=== PATIENT | female | born 1980 | race Caucasian/White ===

== ENCOUNTER 2023-07-20 10:00 | Outpatient (RCR) | payer BC, SELFPAY ==
[2023-07-13] MEDS: IRON SUCROSE COMPLEX 100 MG in 0.9 % SODIUM CHLORIDE 100 ML IV (09:14)
[2023-07-13 09:17] VITALS: BP 106/65; PULSE 69; RESP 16; TEMP 36.6; O2SAT 98
--- NOTE | 2023-07-13 09:21 | PC.NURSE ---
0850 Arrived ambulatory to chair 1. Alert oriented. Reviewed venofer infusion with patient, IV #24 initiated on 1st attempt, tolerated well. Instructed on s/s of rxn, ie (itching shortness of breath hives, difficulty breathing - instructed to call if any occur.
--- NOTE | 2023-07-13 09:46 | PC.NURSE ---
0930 Tolerating infusion well, rate increased to 200 ml/hr
[2023-07-15] MEDS: IRON SUCROSE COMPLEX 200 MG in 0.9 % SODIUM CHLORIDE 100 ML IV (13:19)
[2023-07-15 13:20] VITALS: BP 108/62; PULSE 59; RESP 24; TEMP 36.6; O2SAT 97
--- NOTE | 2023-07-15 13:30 | PC.NURSE ---
1300 Arrived ambulatory to chair Alert oriented. IV initiated with some difficulty a total of 4 attempts to initiate per 2 RN's. 1320 IV infusion intiated, patient tolerating well
--- NOTE | 2023-07-15 14:36 | PC.NURSE ---
1400 infusion completed, tolerated well. flushed line with 20 ml NSS. Patient IV saline lock flushed secured with coban. Released ambulatory.
[2023-07-18 13:30] VITALS: BP 117/64; PULSE 74; RESP 18; TEMP 36.4; O2SAT 97
[2023-07-18] MEDS: IRON SUCROSE COMPLEX 200 MG in 0.9 % SODIUM CHLORIDE 100 ML IV (13:44)
[2023-07-20 09:57] VITALS: BP 124/62; PULSE 65; RESP 18; TEMP 36.2; O2SAT 97
--- NOTE | 2023-07-20 09:57 | PC.NURSE ---
0957: Pt. to [facility] amb for Venofer infusion. Seated in recliner. Pt. with existing IV in right forearm. Pt. c/o itching to site and leaking. IV d/c'd pressure to site. #22 gauge IV initiated to left ac on first attempt without difficulty. Flushes easily with good blood return. Pt. tolerated without c/o. IV Venofer initiated. Pt. denies needs or c/o.
[2023-07-20] MEDS: IRON SUCROSE COMPLEX 100 MG in 0.9 % SODIUM CHLORIDE 100 ML 200 MG IV (10:12)
== END 2023-07-21 23:59 | disposition home or self-care (01) ==
LOC: INF 10:00
PROVIDERS: PCP Internal Medicine; Visit Provider Obstetrics & Gynecology
DX: D50.9 Iron deficiency anemia, unspecified (principal)
CPT/HCPCS: 96360; 96365; J1756

== ENCOUNTER 2023-07-22 08:11 | Outpatient (RCR) | payer BC, SELFPAY ==
[2023-07-22 10:16] VITALS: BP 115/62; PULSE 69; RESP 16; TEMP 36.3; O2SAT 96
[2023-07-22] MEDS: IRON SUCROSE COMPLEX 200 MG in 0.9 % SODIUM CHLORIDE 100 ML 220 MG IV (10:23)
[2023-07-25] MEDS: IRON SUCROSE COMPLEX 200 MG in 0.9 % SODIUM CHLORIDE 100 ML 110 MG IV (14:59)
[2023-07-25 15:05] VITALS: BP 112/66; PULSE 72; RESP 18; TEMP 36.5; O2SAT 96
== END 2023-08-20 23:59 | disposition home or self-care (01) ==
LOC: INF 08:11
PROVIDERS: PCP Internal Medicine; Visit Provider Obstetrics & Gynecology
DX: D50.9 Iron deficiency anemia, unspecified (principal)
CPT/HCPCS: 96365; J1756

== ENCOUNTER 2023-09-01 09:09 | Outpatient (OUT) | payer BC, SELFPAY ==
--- NOTE | 2023-09-01 09:16 | ECG_ITS ---
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
[2023-09-01 10:14] LABS: Basophils Absolute Auto 0.1 10^3/uL (0.0-0.1); Basophils Percent Auto 0.6 % (0.2-2.0); Eosinophils Absolute Auto 0.2 10^3/uL (0.0-0.7); Eosinophils Percent Auto 2.3 % (0.9-7.0); Hematocrit 38.6 % (36.0-48.0); Hemoglobin 11.6 g/dL (12.0-16.0); Immature Granulocytes Abs Auto 0.03 10^3/uL (0.00-0.03); Immature Granulocytes Pct Auto 0.3 % (0.0-0.5); Lymphocytes Absolute Auto 2.9 10^3/uL (1.2-3.8); Lymphocytes Percent Auto 27.3 % (20.5-60.0); Mean Corpuscular HGB Conc 30.1 g/dL (29.9-35.2); Mean Corpuscular Volume 76.6 fL (81.0-99.0); Mean Platelet Volume 10.7 fL (9.5-13.5); Neutrophils Absolute Auto 6.4 10^3/uL (1.4-6.5); Neutrophils Percent Auto 60.5 % (43.0-75.0); Platelet Count 313 10^3/uL (150-450); Red Blood Count 5.04 10^6/uL (4.20-5.40); Red Cell Distribution Width 19.7 % (11.0-15.0); White Blood Count 10.5 10^3/uL (4.0-11.0)
[2023-09-01 10:21] LABS: INR 0.97; Partial Thromboplastin Time 29.6 sec (22.3-36.2); Prothrombin Time 10.3 sec (9.0-11.6)
[2023-09-01 10:27] LABS: Alanine Aminotransferase 22 U/L (14-59); Albumin Globulin Ratio 0.7; Alkaline Phosphatase 70 U/L (46-116); Anion Gap 13.8; Aspartate Amino Transferase 12 U/L (15-37); BUN Creatinine Ratio 15.2; Bilirubin Direct 0.1 mg/dL (0.0-0.2); Bilirubin Total 0.2 mg/dL (0.2-1.0); Calcium 8.7 mg/dL (8.5-10.1); Carbon Dioxide 25.2 mmol/L (21.0-32.0); Chloride 102 mmol/L (98-107); Estimated GFR (African America 56 (>=60); Estimated GFR (Non-African Ame 46 (>=60); Globulin 4.4 g/dL; Glucose 91 mg/dL (74-106); Sodium 137 mmol/L (136-145); Total Protein 7.4 g/dL (6.4-8.2)
== END 2023-09-01 09:10 | disposition home or self-care (01) ==
LOC: PST 09:10
PROVIDERS: PCP Internal Medicine; Visit Provider Obstetrics & Gynecology
DX: Z01.812 Encounter for preprocedural laboratory examination (principal); Z01.810 Encounter for preprocedural cardiovascular examination; R10.2 Pelvic and perineal pain; N94.10 Unspecified dyspareunia; N92.0 Excessive and frequent menstruation with regular cycle; D64.9 Anemia, unspecified
CPT/HCPCS: 36415; 80048; 80076; 85025; 85610; 85730; 86850; 86900; 86901; 93005

== ENCOUNTER 2023-09-15 11:26 | Day surgery (SDC) | payer BC, SELFPAY ==
[2023-09-01 09:46] VITALS: BP 105/66; PULSE 68; RESP 18; TEMP 36.2; O2SAT 97; BMI 51.5
[2023-09-15] VITALS (8 sets, daily range): BP systolic 104–156; BP diastolic 69–88; PULSE 68–84; RESP 12–20; TEMP 36.2–36.6; O2SAT 92–99; BMI 51.0
[2023-09-15 11:57] LABS: HCG Quantitative <1 mIU/mL
[2023-09-15] MEDS: LACTATED RINGER'S SOLUTION 1,000 ML 50 ML IV (12:05)
[2023-09-15] MEDS: METRONIDAZOLE/SODIUM CHLORIDE 500 MG/100 ML PREMIX 100 MG IV (12:06)
[2023-09-15] MEDS: CIPROFLOXACIN IN 5 % DEXTROSE 400 MG/200 ML PIGGYBACK 200 MG IV (13:00)
--- NOTE | 2023-09-15 14:10 | PM.ONB ---
Brief Operative Note Date of procedure: 09/15/23 Pre-op diagnosis: menorrhagia, dysmenorrhea, dyspareunia, renal disease Post-op diagnosis: same as pre-op Procedure: NAME OF PROCEDURE: cystoscopy. Cystoscopy was performed. Uretheral dilation required. Bladder was intact. Efflux could not be easily seen after 10min, fluoroscene was given, after 12min no dye was seen, discussed case with urology, whom advised need for possible evaluation for consideration of stents prior to hysterectomy. Fluoroscene was eventually noted after mack was placed, Cystoscope was removed.Patient taken to the Recovery Room in stable condition Anesthesia: PURNIMA Surgeon: Geovanny Galarza Environmental Engineering Technician: Tali Valadez Estimated blood loss (mL): 5 Pathology: none sent Condition: stable Disposition: PACU
== END 2023-09-15 15:23 | disposition home or self-care (01) ==
PROVIDERS: PCP Internal Medicine; Visit Provider Obstetrics & Gynecology
PROC: (CPT 52000; principal; 2023-09-15 12:30)
DX: R10.2 Pelvic and perineal pain (principal); N94.10 Unspecified dyspareunia; N92.0 Excessive and frequent menstruation with regular cycle; D64.9 Anemia, unspecified; I10 Essential (primary) hypertension; F32.A Depression, unspecified; Z98.51 Tubal ligation status; E66.01 Morbid (severe) obesity due to excess calories; Z68.43 Body mass index [BMI] 50.0-59.9, adult
CPT/HCPCS: 52000; 36415; 84702; J2704

== ENCOUNTER 2023-09-23 13:29 | Outpatient (OUT) | payer BC, SELFPAY | END 2023-09-23 13:30 | disposition home or self-care (01) | LOC: PST 13:30 | PROVIDERS: PCP Internal Medicine; Visit Provider Urology | DX: Z01.818 Encounter for other preprocedural examination (principal); R10.2 Pelvic and perineal pain ==

== ENCOUNTER 2023-09-23 13:31 | Outpatient (OUT) | payer BC, SELFPAY ==
--- NOTE | 2023-09-23 14:13 | PM.PRESUREVA ---
History of Present Illness History of Present Illness Chief complaint: pelvic pain Narrative: Patient presents for preadmission testing. Patient reports a long history of painful heavy periods, abnormal uterine bleeding, and anemia. She had several iron transfusions. She had an attempted hysterectomy here on September 15 which could not be completed due to ureteral stricture. Review of Systems ROS Narrative REVIEW OF SYSTEMS: Negative except as stated in HPI, ten or more systems reviewed. Constitutional: No fever , chills, weakness ENT: No sore throat or epistaxis Cardiovascular: No edema, chest pain, palpitations, or activity intolerance Respiratory: No shortness of breath, cough, or wheezing Musculoskeletal: No joint pain or swelling Gastrointestinal: No abdominal pain, constipation, diarrhea, or vomiting Genitourinary: No dysuria or hematuria Neurological: No numbness, tingling, weakness, or headache Psychiatric: No mood changes PFSH [facility] Medical History (Updated 09/23/23 @ 14:16 by Missy Stephenson NP) Anemia ?D64.9 - Anemia, unspecified (ICD-10) Asthma ?J45.909 - Unspecified asthma, uncomplicated (ICD-10) Bronchitis ?J40 - Bronchitis, not specified as acute or chronic (ICD-10) COVID-19 ?U07.1 - COVID-19 (ICD-10) Dyspareunia GERD (gastroesophageal reflux disease) ?K21.9 - Gastro-esophageal reflux disease without esophagitis (ICD-10) Goiter ?E04.9 - Nontoxic goiter, unspecified (ICD-10) 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 (ICD-10) Heartburn ?R12 - Heartburn (ICD-10) History of blood transfusion ?Z92.89 - Personal history of other medical treatment (ICD-10) Hypertension ?I10 - Essential (primary) hypertension (ICD-10) Menorrhagia ?N92.0 - Excessive and frequent menstruation with regular cycle (ICD-10) Migraine ?G43.909 - Migraine, unspecified, not intractable, without status migrainosus (ICD-10) Pelvic pain ?R10.2 - Pelvic and perineal pain (ICD-10) Postoperative nausea and vomiting ?R11.2 - Nausea with vomiting, unspecified (ICD-10) ?Z98.890 - Other specified postprocedural states (ICD-10) Renal insufficiency ?N28.9 - Disorder of kidney and ureter, unspecified (ICD-10) Ureteral stricture ?N13.5 - Crossing vessel and stricture of ureter without hydronephrosis (ICD-10) Surgical History (Updated 09/01/23 @ 09:41 by Missy Stephenson NP) History of section ?Z98.891 - History of uterine scar from previous surgery (ICD-10) History of section ?Z98.891 - History of uterine scar from previous surgery (ICD-10) History of section ?Z98.891 - History of uterine scar from previous surgery (ICD-10) History of dilation and curettage ?Z98.890 - Other specified postprocedural states (ICD-10) History of thyroidectomy ?E89.0 - Postprocedural hypothyroidism (ICD-10) History of tonsillectomy and adenoidectomy ?Z90.89 - Acquired absence of other organs (ICD-10) History of tubal ligation ?Z98.51 - Tubal ligation status (ICD-10) Family History (Updated 09/01/23 @ 09:41 by Missy Stephenson NP) Other Family history of breast cancer Family history of heart disease Family history of hypertension Family history of myocardial infarction Family history of stroke Social History (Updated 09/01/23 @ 09:36 by Missy Stephenson NP) Within the past year, how often did you have a drink containing alcohol: never Score interpretation: A score less than 3 is consistent with normal alcohol consumption. Smoking status: Never smoker Non-prescribed substance use: denies use Previous occupational history: [employer] Highest level of school completed/degree received: high school graduate Meds Home Medications and Allergies Home Medications Medication Instructions Recorded Confirmed Type albuterol sulfate 90 mcg/actuation 2 inh inhalation Q4H PRN shortness 07/13/23 09/23/23 History aerosol inhaler (Ventolin HFA) of breath or wheezing atenolol 25 mg tablet 25 mg PO Q24H 07/13/23 09/23/23 History calcitriol 0.5 mcg capsule 1 mcg PO DAILY 07/13/23 09/23/23 History citalopram 40 mg tablet 40 mg PO DAILY 07/13/23 09/23/23 History ergocalciferol (vitamin D2) 1,250 50,000 unit PO .weekly 07/13/23 09/23/23 History mcg (50,000 unit) capsule levothyroxine 200 mcg tablet 200 mcg PO DAILY 07/13/23 09/23/23 History lisinopril 20 mg tablet 10 mg PO DAILY 07/13/23 09/23/23 History magnesium oxide 400 mg (241.3 mg 400 mg PO QDAY 09/01/23 09/23/23 History magnesium) tablet megestrol 20 mg tablet 20 mg PO QDAY 09/01/23 09/23/23 History montelukast 10 mg tablet 10 mg PO QDAY 09/01/23 09/23/23 History famotidine 40 mg tablet 40 mg PO DAILY 09/23/23 09/23/23 History loratadine 10 mg tablet 10 mg PO DAILY 09/23/23 09/23/23 History Allergies Allergy/AdvReac Type Severity Reaction Status Date / Time amoxicillin [From Augmentin] Allergy Severe Hives Verified 07/13/23 09:04 clavulanic acid Allergy Severe Hives Verified 07/13/23 09:04 [From Augmentin] ethinyl estradiol Allergy Severe Hives Verified 07/13/23 09:04 [From Ortho Tri-Cyclen (28)] norgestimate Allergy Severe Hives Verified 07/13/23 09:04 [From Ortho Tri-Cyclen (28)] montelukast [From Singulair] Allergy Rash Verified 09/23/23 13:52 ortho-tri Allergy Severe Hives Uncoded 07/13/23 09:04 Exam Narrative Exam Narrative: Constitutional: Awake, alert, comfortable, well-appearing, nontoxic, interactive, vital signs as charted Head: Normocephalic, atraumatic Neck: Supple, normal appearance, normal range of motion, no meningeal signs, no lymphadenopathy Respiratory: No respiratory distress, breath sounds clear Cardiovascular: Regular rate and rhythm, strong and regular heart tones Abdomen: Nontender, normal bowel sounds, soft, no CVA tenderness Musculoskeletal: Normal gait, no swelling or edema Skin: No rashes or induration, no lesions, only visible skin inspected Neuro: No neurological deficits, normal sensation Psychiatric: Oriented ?3, normal affect Assessment and Plan Assessment and Plan (1) Anemia: (2) Dyspareunia: (3) Menorrhagia: (4) Pelvic pain: (5) Ureteral stricture: (6) Renal insufficiency: Plan Cystoscopy, bilateral ureteroscopy, possible bilateral stent placement scheduled with Dr. Mcdonald 09/29/2023. Da Grecia-assisted laparoscopic hysterectomy, possible exploratory laparotomy, possible bilateral salpingo-oophorectomy, possible cystoscopy scheduled with Dr. Galarza 10/05/2023.
[2023-09-23 14:20] LABS: Basophils Absolute Auto 0.1 10^3/uL (0.0-0.1); Basophils Percent Auto 0.6 % (0.2-2.0); Eosinophils Absolute Auto 0.2 10^3/uL (0.0-0.7); Eosinophils Percent Auto 1.9 % (0.9-7.0); Hematocrit 36.5 % (36.0-48.0); Hemoglobin 11.2 g/dL (12.0-16.0); Immature Granulocytes Abs Auto 0.04 10^3/uL (0.00-0.03); Immature Granulocytes Pct Auto 0.3 % (0.0-0.5); Lymphocytes Percent Auto 24.1 % (20.5-60.0); Mean Corpuscular HGB Conc 30.7 g/dL (29.9-35.2); Mean Corpuscular Hemoglobin 23.6 pg (26.7-34.0); Mean Platelet Volume 10.4 fL (9.5-13.5); Monocytes Absolute Auto 1.1 10^3/uL (0.3-0.8); Neutrophils Absolute Auto 8.1 10^3/uL (1.4-6.5); Neutrophils Percent Auto 64.1 % (43.0-75.0); Platelet Count 334 10^3/uL (150-450); Red Blood Count 4.74 10^6/uL (4.20-5.40); Red Cell Distribution Width 18.4 % (11.0-15.0); White Blood Count 12.6 10^3/uL (4.0-11.0)
== END 2023-09-23 13:32 | disposition home or self-care (01) ==
LOC: PST 13:32
PROVIDERS: PCP Internal Medicine; Visit Provider Obstetrics & Gynecology
DX: Z01.812 Encounter for preprocedural laboratory examination (principal); R10.2 Pelvic and perineal pain; N94.10 Unspecified dyspareunia; N92.0 Excessive and frequent menstruation with regular cycle; D64.9 Anemia, unspecified
CPT/HCPCS: 85025; 86850; 86900; 86901; G0463

== ENCOUNTER 2023-09-23 14:41 | Outpatient (OUT) | payer BC, SELFPAY | END 2023-09-23 14:42 | disposition home or self-care (01) | LOC: PST 14:42 | PROVIDERS: PCP Internal Medicine; Visit Provider Urology | DX: Z01.818 Encounter for other preprocedural examination (principal); R10.2 Pelvic and perineal pain ==

== ENCOUNTER 2023-09-29 10:17 | Day surgery (SDC) | payer BC, SELFPAY ==
[2023-09-23 14:29] VITALS: BP 104/72; PULSE 74; RESP 20; TEMP 36.2; O2SAT 99; BMI 51.9
[2023-09-29] VITALS (15 sets, daily range): BP systolic 125–149; BP diastolic 75–88; PULSE 75–104; RESP 15–22; TEMP 36.5–36.7; O2SAT 90–98; BMI 51.9
[2023-09-29 10:39] LABS: HCG Qualitative NEGATIVE (NEGATIVE)
[2023-09-29] MEDS: LACTATED RINGER'S SOLUTION 1,000 ML 50 ML IV (11:00)
[2023-09-29] MEDS: CIPROFLOXACIN IN 5 % DEXTROSE 400 MG/200 ML PIGGYBACK 200 MG IV (11:46)
[2023-09-29] MEDS: IOHEXOL 300 MG/ML - 50 ML BTL INJ (12:26)
--- NOTE | 2023-09-29 12:32 | PM.URSON ---
Urology Surgery Operative Note Operative Note Procedure Date: 09/29/23 Time Out Performed: yes Pre-op Diagnosis: bilateral ureteral stenosis Post-op Diagnosis: same as pre-op Procedures performed: #1. Cystoscopy. #2. Bilateral retrograde pyelogram. #3. Bilateral rigid ureteral dilation. #4. Bilateral ureteroscopy. #5. Bilateral placement of 6 [place] variable length ureteral stents Anesthesia: General-LMA Primary Surgeon: Jesus Mcdonald Complications: none Estimated blood loss (mL): 0 Findings: #1. Bilateral distal ureteral stenosis. #2. Bilateral ureteral inflammatory debris left greater than right. Specimens: none Drains: bilateral 6 [place] ureteral stents Indications for Procedures: this lady was going to get a laparoscopic hysterectomy. Upon initial maneuver of cystoscopy it was noted that there was no reflux of urine from either ureter for over 10 minutes. IV dye was given also and still no reflux of urine. Procedure was then terminated. Incidentally, this lady has renal insufficiency for unknown reasons. She now presents for cystoscopy, bilateral retrogrades, bilateral ureteroscopy and probable placement of bilateral ureteral stents. She has signed an informed consent after all risks were explained. Detailed description of Procedure: The patient was brought to the operating room and placed on the operating room table in the supine position. SCDs were placed on the lower extremities and turned on and functioning during the entire case. Timeout was done by all parties in the room. We all agreed upon the patient's identification and the planned procedures for this patient. Genn. anesthesia was then administered. The patient was then repositioned into the modified dorsal lithotomy position. All pressure points were satisfactorily padded. Genitalia were sterilely prepped and draped in usual fashion.I started by passing a 22 [place] Olympus cystoscope per urethra and into the bladder. Careful panendoscopy in the bladder showed no evidence of any tumors or stones. I then used a 8 [place] cone-tipped catheter and did a left retrograde pyelogram. The distal ureter was narrow. The rest of the ureter and renal calyceal system appeared unremarkable.I then passed a Glidewire through the scope and up the left ureter into the kidney. The cystoscope was removed. I then passed a flexible ureteroscope over the wireand up the ureter. There was copious amounts of inflammatory debris within the ureter. No tumors or stones or lesions were noted. I ascended all the way up the ureter and into the kidney. I looked into the upper mid and lower pole calyces. I found no evidence of tumors stones or lesions. The guidewire was then repassed into the kidney and the scope was removed. I then backloaded the cystoscope over the wire and passed it back into the bladder. I then slid a 6 [place] variable length ureteral stent over the wire up into the kidney. Thee wire was removed and there were good curls in the kidney and the bladder. I then did the exact same maneuver on the right side. similar findings were noted on the retrograde and on endoscopy but there was a bit less inflammatory debris within the right ureter compared to the left.At the end of the procedure she had [address] The bladder was drained of its contents and the scope was then removed. She was then transferred to a [facility] [place] bed and wheeled to PACU in stable condition. She'll be discharged to home with a prescription for Keflex 500 mg daily #20 and oxybutynin Emergency Room 10 mg daily #20.
--- NOTE | 2023-09-29 13:21 | PC.NURSE ---
Iv saline locked. Patient upto BR with assist x1.
[2023-09-29] MEDS: ACETAMINOPHEN 325 MG TABLET PO (13:34)
[2023-09-29] MEDS: SOLIFENACIN SUCCINATE 10 MG TABLET PO (13:35)
--- NOTE | 2023-09-29 13:37 | PC.NURSE ---
PATIENT URINATED AT THIS TIME WITHOUT DIFFICULTY
--- NOTE | 2023-09-29 13:45 | PC.NURSE ---
GAVE TYLENOL FOR CRAMPING PER PATIENT REQUEST AND PHYSICIAN ORDER.
== END 2023-09-29 13:45 | disposition home or self-care (01) ==
PROVIDERS: PCP Internal Medicine; Visit Provider Urology
PROC: (CPT 52332; principal; 2023-09-29 11:00)
DX: N13.5 Crossing vessel and stricture of ureter without hydronephrosis (principal); N28.9 Disorder of kidney and ureter, unspecified; R10.2 Pelvic and perineal pain; J45.909 Unspecified asthma, uncomplicated; Z86.16 Personal history of COVID-19; K21.9 Gastro-esophageal reflux disease without esophagitis; E06.3 Autoimmune thyroiditis; R12 Heartburn; I10 Essential (primary) hypertension; N92.0 Excessive and frequent menstruation with regular cycle; E89.0 Postprocedural hypothyroidism; Z98.51 Tubal ligation status; N94.10 Unspecified dyspareunia; E66.01 Morbid (severe) obesity due to excess calories; Z68.43 Body mass index [BMI] 50.0-59.9, adult
CPT/HCPCS: 52332; 36415; 74420; 84703; J2704; Q9967

== ENCOUNTER 2023-10-04 07:33 | Outpatient (RCR) | payer BC, SELFPAY ==
--- NOTE | 2023-10-04 09:36 | PC.NURSE ---
10/04/23 0806:pt identified and brought back to a room with her at 0720,blanket and fluids offered pt declined needs. supplies at bedside, [place],AccessRN at bedside and completed consent for procedure,witnessed by the investment underwriter. per pt procedure was tolerated well and she had no active complaints upon discharge. pt educated to keep site clean and dry. pt left the unit at 0806.
== END 2023-10-20 23:59 | disposition home or self-care (01) ==
LOC: INF 07:33
PROVIDERS: PCP Internal Medicine; Visit Provider Family Medicine
DX: D50.9 Iron deficiency anemia, unspecified (principal); Z45.2 Encounter for adjustment and management of vascular access device
CPT/HCPCS: 36410; C1887

== ENCOUNTER 2023-10-05 06:19 | Day surgery (SDC) | payer BC, SELFPAY ==
[2023-09-23 14:01] VITALS: BP 104/72; PULSE 74; RESP 20; TEMP 36.2; O2SAT 99; BMI 51.9
[2023-10-05] VITALS (16 sets, daily range): BP systolic 70–139; BP diastolic 37–69; PULSE 62–75; RESP 14–26; TEMP 35.9–36.7; O2SAT 88–99; BMI 50.8
[2023-10-05 06:59] LABS: Basophils Absolute Auto 0.1 10^3/uL (0.0-0.1); Basophils Percent Auto 0.5 % (0.2-2.0); Eosinophils Absolute Auto 0.5 10^3/uL (0.0-0.7); Eosinophils Percent Auto 2.9 % (0.9-7.0); Hematocrit 35.5 % (36.0-48.0); Hemoglobin 11.2 g/dL (12.0-16.0); Immature Granulocytes Abs Auto 0.06 10^3/uL (0.00-0.03); Immature Granulocytes Pct Auto 0.4 % (0.0-0.5); Lymphocytes Absolute Auto 3.4 10^3/uL (1.2-3.8); Lymphocytes Percent Auto 21.8 % (20.5-60.0); Mean Corpuscular HGB Conc 31.5 g/dL (29.9-35.2); Mean Corpuscular Hemoglobin 23.9 pg (26.7-34.0); Mean Corpuscular Volume 75.9 fL (81.0-99.0); Mean Platelet Volume 10.3 fL (9.5-13.5); Monocytes Absolute Auto 1.2 10^3/uL (0.3-0.8); Monocytes Percent Auto 7.6 % (1.7-12.0); Neutrophils Absolute Auto 10.5 10^3/uL (1.4-6.5); Neutrophils Percent Auto 66.8 % (43.0-75.0); Platelet Count 323 10^3/uL (150-450); Red Blood Count 4.68 10^6/uL (4.20-5.40); Red Cell Distribution Width 17.9 % (11.0-15.0); White Blood Count 15.8 10^3/uL (4.0-11.0)
[2023-10-05] MEDS: CIPROFLOXACIN IN 5 % DEXTROSE 400 MG/200 ML PIGGYBACK 200 MG IV ×2 (07:07→18:22)
[2023-10-05 07:08] LABS: HCG Quantitative <1 mIU/mL
[2023-10-05] MEDS: LACTATED RINGER'S SOLUTION 1,000 ML 50 ML IV (07:08)
[2023-10-05] MEDS: METRONIDAZOLE/SODIUM CHLORIDE 500 MG/100 ML PREMIX 100 MG IV ×2 (08:11→16:04)
[2023-10-05] MEDS: LACTATED RINGER'S SOLUTION 1,000 ML 1000 ML IV (11:28)
[2023-10-05] MEDS: LACTATED RINGER'S SOLUTION 1,000 ML 125 ML IV ×2 (13:59→23:15)
[2023-10-05] MEDS: OXYCODONE HCL/ACETAMINOPHEN 5MG/325MG 1 TAB PO ×2 (16:04→22:35)
[2023-10-05] MEDS: DOCUSATE SODIUM 100 MG CAPSULE PO (18:22)
[2023-10-05] MEDS: IBUPROFEN 600 MG TABLET 800 MG PO (18:22)
--- NOTE | 2023-10-05 20:16 | RESP.RT ---
PEP not done at this time because patient is eating. Patient stated she will do it as soon as she is done.
[2023-10-06] MEDS: OXYCODONE HCL/ACETAMINOPHEN 5MG/325MG 1 TAB PO (04:38)
[2023-10-06 05:12] VITALS: BP 114/76; PULSE 61; RESP 16; TEMP 36.6; O2SAT 99
[2023-10-06 05:22] LABS: Basophils Percent Auto 0.1 % (0.2-2.0); Eosinophils Absolute Auto 0.1 10^3/uL (0.0-0.7); Eosinophils Percent Auto 0.2 % (0.9-7.0); Hematocrit 32.2 % (36.0-48.0); Hemoglobin 9.6 g/dL (12.0-16.0); Immature Granulocytes Abs Auto 0.14 10^3/uL (0.00-0.03); Immature Granulocytes Pct Auto 0.6 % (0.0-0.5); Lymphocytes Absolute Auto 2.9 10^3/uL (1.2-3.8); Lymphocytes Percent Auto 12.8 % (20.5-60.0); Mean Corpuscular HGB Conc 29.8 g/dL (29.9-35.2); Mean Corpuscular Hemoglobin 23.7 pg (26.7-34.0); Mean Corpuscular Volume 79.5 fL (81.0-99.0); Mean Platelet Volume 10.5 fL (9.5-13.5); Monocytes Absolute Auto 1.6 10^3/uL (0.3-0.8); Monocytes Percent Auto 6.9 % (1.7-12.0); Neutrophils Absolute Auto 17.8 10^3/uL (1.4-6.5); Platelet Count 281 10^3/uL (150-450); Red Blood Count 4.05 10^6/uL (4.20-5.40); White Blood Count 22.5 10^3/uL (4.0-11.0)
[2023-10-06 06:06] LABS: Neutrophils Percent Auto 79.4 % (43.0-75.0)
[2023-10-06] MEDS: IBUPROFEN 600 MG TABLET 800 MG PO (09:05)
[2023-10-06] MEDS: MAGNESIUM HYDROXIDE 2,400 MG/10 ML ORAL.SUSP 2400 MG PO (09:05)
--- NOTE | 2023-10-06 09:33 | PC.NURSE ---
Attempted to call Dr Galarza's office to schedule follow up appt but no answer x3. Educated pt on discharge instructions to call to schedule appt.
--- NOTE | 2023-10-15 09:25 | P.ON_ITS ---
Brief Operative Note Date of procedure: 10/15/23 Pre-op diagnosis: menorrhagia, pelvic pain, dysmenorrhea, dyspareunia, enlarged uterus Post-op diagnosis: same as pre-op Procedure: NAME OF PROCEDURE: ? Robotic assisted laparoscopic hysterectomy with cystoscopy, bilateral salpingectomy PROCEDURE:? The patient was taken back to the operating room, where she was prepped and draped in the normal sterile fashion after being placed in the dorsal lithotomy position.? Patient?s anesthesia was found to be adequate.? Surgical timeout was performed using two patient identifiers.? SCDs were on and in place.? Two grams of Ancef were given prior to the surgery.? Sterile Srinivasan catheter was inserted.? Standard size VCare was secured to the uterine cervix and the surgeon changed gloves.? Attention then was turned to the patient's abdomen, where a supraumbilical incision was then made.? Two S retractors were used to identify the patient?s fascia.? The fascia was then tented up using Gabriel clamps and the patient?s fascia was incised sharply.? Patient?s abdomen was identified and entered bluntly.? The patient had the trocar placed and a pneumoperitoneum was obtained.? Approximately 4 liters of CO2 gas was used.? The camera was then placed through the trocar.? At this time, two robot trocars were placed in the patient?s left and right side, two hand widths from the midline, and this was placed under direct visualization.? The patient?s tube on the right side was tented up and the vessel sealer was then used to come across the mesosalpinx, and this was carried down to the uterine ovarian ligament.? The vessel sealer was carried down serially to the broad ligament, to the area of the bladder flap, which was then created anteriorly, and the uterine arteries were skeletonized and sealed using the vessel sealer.? The colpotomy was made using the monopolar cautery on cut, and this was carried circumferentially, posteriorly to anteriorly, until the uterus was amputated.? The specimen was then removed intact through the vagina, without difficulty.? The vagina was then closed using two running V-Loc in a non-lock fashion.? The robot was undocked.? The abdomen was desufflated.? The skin defects were closed using 4-0 Vicryl.? Please note, the fascia was closed using 0 Vicryl.? Sponge, lap and needle counts were correct x2.? Patient was taken to recovery room in stable condi tion.? The patient was awakened by Anesthesia first.? Patient tolerated procedure well.??please not cystoscopy was done demonstrating intact bladder, bilateral ureteral stents were seen bilaterally, both stents were removed intact and without difficulty. Anesthesia: PURNIMA Surgeon: Geovanny Galarza Marketing Proposal Coordinator: Tali Valadez Estimated blood loss (mL): 150 Pathology: other (uterus and tubes) Condition: stable Disposition: PACU
== END 2023-10-06 09:40 | disposition home or self-care (01) ==
LOC: SURGOUT 06:19 → MS 10-06 09:19
PROVIDERS: PCP Internal Medicine; Visit Provider Obstetrics & Gynecology
PROC: (CPT 840; principal; 2023-10-05 07:30)
DX: R10.2 Pelvic and perineal pain (principal); N94.10 Unspecified dyspareunia; N92.0 Excessive and frequent menstruation with regular cycle; D64.9 Anemia, unspecified; N72 Inflammatory disease of cervix uteri; J45.909 Unspecified asthma, uncomplicated; Z86.16 Personal history of COVID-19; K21.9 Gastro-esophageal reflux disease without esophagitis; I10 Essential (primary) hypertension; E89.0 Postprocedural hypothyroidism; Z98.51 Tubal ligation status; N28.9 Disorder of kidney and ureter, unspecified; F32.A Depression, unspecified; N94.6 Dysmenorrhea, unspecified; N85.2 Hypertrophy of uterus; E66.01 Morbid (severe) obesity due to excess calories; Z68.43 Body mass index [BMI] 50.0-59.9, adult
CPT/HCPCS: 58571; 36415; 36592; 84702; 85025; 88307; 94667; J1170; J2704

== ENCOUNTER 2024-11-27 19:37 | Outpatient (REF) | payer BC, SELFPAY ==
[2024-11-30 12:08] LABS: Age Gdln ACOG Testing Note (.); HPV Aptima Negative (Negative); IGP, Aptima HPV, rfx 16/18,45 Note (.)
== END 2024-11-27 19:38 | disposition home or self-care (01) ==
LOC: LAB 19:37
PROVIDERS: PCP Internal Medicine; Visit Provider Obstetrics & Gynecology
DX: Z01.419 Encounter for gynecological examination (general) (routine) without abnormal findings (principal)
CPT/HCPCS: 87624; 88175

== ENCOUNTER 2024-12-11 10:00 | Outpatient (OUT) | payer BC, SELFPAY ==
--- NOTE | 2024-12-11 10:05 | MM_ITS ---
Patient Name: DAMON GARCIA MR#: [id number] : 1980 Exam Date: 12/11/2024 Ordering Doctor: DR Geovanny Galarza . RADIOLOGY REPORT PROCEDURE: MM TOMOSYNTHESIS SCREENING BI COMPARISON: MG MAMM SCREEN 3D NICHOLE CAD, 03/29/2023. INDICATIONS: Screening Calculator Name NCI Breast Cancer Risk Assessment Tool 5 Year Breast Cancer Risk 0.60% Lifetime Breast Cancer Risk 6.90% Personal Breast Cancer No Personal Ovarian Cancer No Treatments None Family Cancers Grandmother-maternal with breast cancer at age ~45. LOCATION: [facility] BREAST COMPOSITION: There are scattered areas of fibroglandular density. FINDINGS: DIAGNOSTIC CATEGORY 2--BENIGN FINDING: RIGHT BREAST: No significant suspicious finding. Scattered benign-appearing calcifications are present. No significant change has occurred. LEFT BREAST: No significant suspicious finding. Scattered benign-appearing calcifications are present. Scattered benign-appearing lymph nodes are present. No significant change has occurred. RECOMMENDATIONS: ROUTINE MAMMOGRAM AND CLINICAL EVALUATION IN 12 MONTHS. PLEASE NOTE: A NORMAL MAMMOGRAM DOES NOT EXCLUDE THE POSSIBILITY OF BREAST CANCER. A CLINICALLY SUSPICIOUS PALPABLE LUMP SHOULD BE BIOPSIED. Dictated by: Apolinar Irwin M.D. on 12/12/2024 at 14:14 Approved by: Apolinar Irwin M.D. on 12/12/2024 at 14:25
== END 2024-12-11 10:01 | disposition home or self-care (01) ==
LOC: MAMMO 10:00
PROVIDERS: PCP Internal Medicine; Visit Provider Obstetrics & Gynecology
DX: Z12.31 Encounter for screening mammogram for malignant neoplasm of breast (principal); Z80.3 Family history of malignant neoplasm of breast
CPT/HCPCS: 77063; 77067